=== PATIENT | male | born 1960 | race Caucasian/White ===

== ENCOUNTER 2023-12-31 15:51 | Emergency (ER) | payer MEDICAID ==
[~2023-12-31] VITALS: Ht 160 cm; Wt 86.2 kg
[2023-12-31 16:14] VITALS: BP 137/86; PULSE 80; RESP 19; TEMP 97.8; O2SAT 96
[2023-12-31] MEDS: FLUORESCEIN OPTH STRIP 1 MG OP ONE (17:45)
[2023-12-31] MEDS: TETRACAINE HCL/PF 0.5% OPTH 4 ML BTL OP ONE (17:45)
[2023-12-31] MEDS ORDERED: PROP15DR OP (17:51)
[2023-12-31 18:29] VITALS: BP 137/86; PULSE 80; RESP 19; TEMP 97.8; O2SAT 96
== END 2023-12-31 18:36 | disposition home or self-care (01) ==
LOC: MED 15:51
DX: H57.89 Other specified disorders of eye and adnexa (principal); Z79.899 Other long term (current) drug therapy
CPT/HCPCS: 99283